=== PATIENT | female | born 1975 | race Caucasian/White ===

== ENCOUNTER 2016-12-15 17:31 | Emergency (ER) | payer MEDICAID, MEDICARE ==
--- NOTE | 2016-12-15 17:56 | ER Document Report ---
ED Medical Screen (RME) - General Stated Complaint: LEFT KNEE/LEG PAIN Notes: 41 yo female c/o pain to anterior knee x 2 weeks. pain is radiating to anterior martinez and into right thigh. pain is progressively worsening. not relieved with ice and motrin. no trauma. started floor exercises prior to pain. pt was evaluated by PCM yesterday for same, scheduled for PT but she reports pain is too intense to wait for physical therapy. TRAVEL OUTSIDE OF THE [place] IN LAST 30 DAYS: No - Related Data Allergies/Adverse Reactions: ketorolac tromethamine [From Toradol] Adverse Reaction (Intermediate, Verified 07/15/16 10:47) Diarrhea Past Medical History - Past Medical History Cardiac Medical History: Reports: Hx Hypertension - on meds Denies: Hx Heart Murmur Pulmonary Medical History: Denies: Hx Asthma Endocrine Medical History: Reports: Hx Hypothyroidism. Denies: Hx Hyperthyroidism GI Medical History: Reports: Hx Gastroesophageal Reflux Disease - GERD Psychiatric Medical History: Reports: Hx Depression - on meds Denies: Hx Bipolar Disorder, Hx Post Traumatic Stress Disorder, Hx Schizophrenia Past Surgical History: Reports: Hx Section - Immunizations Hx Diphtheria, Pertussis, Tetanus Vaccination: Yes Physical Exam - Vital signs Vitals: Temp Pulse Resp BP Pulse Ox 98.1 F 86 14 132/82 H 95 12/15/16 17:36 12/15/16 17:36 12/15/16 17:36 12/15/16 17:36 12/15/16 17:36 Course - Vital Signs Vital signs: Temp Pulse Resp BP Pulse Ox 98.1 F 86 14 132/82 H 95 12/15/16 17:36 12/15/16 17:36 12/15/16 17:36 12/15/16 17:36 12/15/16 17:36
--- NOTE | 2016-12-15 19:44 | ER Document Report ---
HPI - HPI Patient complains to provider of: left knee pain Onset: Other - Over 2 weeks Onset/Duration: Persistent Quality of pain: Achy Severity: Severe Pain Level: 4 Context: Patient presents to the emergency department with complaints of left knee pain that radiates down her martinez. Patient reports it started after she started exercising. She's been to her primary care provider twice and has been referred to physical therapy. She has been prescribed Motrin for the pain. She reports the pain is keeping her up at night and she was crying it hurt so bad today. She denies other symptoms such as fever vomiting diarrhea. She denies calf pain. Patient reports her primary care provider has done x-rays and there is nothing wrong with her knee. She reports she hasn't fallen on the knee. She also denies past medical history of injury to the knee. Associated Symptoms: None Exacerbated by: Walking Relieved by: Denies Similar symptoms previously: Yes Recently seen / treated by doctor: Yes - REPRODUCTIVE Reproductive: REPORTS: : - DERM Skin Color: Normal Past Medical History - General Information source: Patient Last Menstrual Period: nov - Social History Smoking Status: Never Smoker Cigarette use (# per day): No Chew tobacco use (# tins/day): No Frequency of alcohol use: None Drug Abuse: None Occupation: none Lives with: Family Family History: Reviewed & Not Pertinent Patient has suicidal ideation: No Patient has homicidal ideation: No - Past Medical History Cardiac Medical History: Reports: Hx Hypertension - on meds Denies: Hx Heart Murmur Pulmonary Medical History: Denies: Hx Asthma Endocrine Medical History: Reports: Hx Hypothyroidism. Denies: Hx Hyperthyroidism Renal/ Medical History: Denies: Hx Peritoneal Dialysis GI Medical History: Reports: Hx Gastroesophageal Reflux Disease - GERD Psychiatric Medical History: Reports: Hx Depression - on meds Denies: Hx Bipolar Disorder, Hx Post Traumatic Stress Disorder, Hx Schizophrenia Past Surgical History: Reports: Hx Section - Immunizations Hx Diphtheria, Pertussis, Tetanus Vaccination: Yes Vertical Provider Document - CONSTITUTIONAL Agree With Documented VS: Yes Exam Limitations: No Limitations General Appearance: WD/WN, No Apparent Distress - INFECTION CONTROL TRAVEL OUTSIDE OF THE [place] IN LAST 30 DAYS: No - HEENT HEENT: Atraumatic, Normocephalic - NECK Neck: Supple - RESPIRATORY Respiratory: No Respiratory Distress O2 Sat by Pulse Oximetry: 95 - CARDIOVASCULAR Cardiovascular: Regular Rate - MUSCULOSKELETAL/EXTREMETIES Musculoskeletal/Extremeties: MAEW, FROM, Non-Tender - nontender to touch, c/o left knee and martinez pain, no erythema and no warmth or swelling no obvious deformity - NEURO Level of Consciousness: Awake, Alert, Appropriate Motor/Sensory: No Motor Deficit - DERM Integumentary: Warm, Dry Adult Front & Back Diagram: 1 - Complains of pain 2 - Radiates down martinez Course - Re-evaluation Re-evalutation: 12/15/16 19:48 She was instructed on martinez splints. Patient was instructed on the importance of good foot wear. She was also instructed to continue the Motrin and follow- up with her primary care provider to ascertain when she will obtain her physical therapy referral. - Vital Signs Vital signs: Temp Pulse Resp BP Pulse Ox 98.1 F 86 14 132/82 H 95 12/15/16 17:36 12/15/16 17:36 12/15/16 17:36 12/15/16 17:36 12/15/16 17:36 Discharge - Discharge Clinical Impression: Elevated blood pressure reading Left knee pain Qualifiers: Chronicity: acute Qualified Code(s): M25.562 - Pain in left knee Martinez splints Qualifiers: Encounter type: initial encounter Laterality: left Qualified Code(s): S86.892A - Other injury of other muscle(s) and tendon(s) at lower leg level, left leg, initial encounter Condition: Stable Disposition: HOME, SELF-CARE Additional Instructions: *You have been evaluated for left knee pain, martinez splints *Rest/Ice packs, stretch as indicated *Follow up with physical therapy as advised by your primary care provider *Take your ibuprofen as prescribed *Follow-up with her primary care provider tomorrow to discuss the physical therapy referral *Monitor your blood pressure. Your blood pressure was elevated today. This may be because you were anxious, in pain or because you need medication. It is important to follow up with your primary care provider for full evaluation. *Return to ED for worsening condition, changes, needs Forms: Elevated Blood Pressure
[2016-12-15 20:10] VITALS: BP 134/94
== END 2016-12-15 20:08 | disposition home or self-care (01) ==
LOC: ER 17:31
DX: S86.892A Other injury of other muscle(s) and tendon(s) at lower leg level, left leg, initial encounter (principal); M25.562 Pain in left knee; I10 Essential (primary) hypertension; X58.XXXA Exposure to other specified factors, initial encounter; E03.9 Hypothyroidism, unspecified; K21.9 Gastro-esophageal reflux disease without esophagitis
CPT/HCPCS: 99283